=== PATIENT | female | born 1950 | race Caucasian/White ===

== ENCOUNTER 2018-03-26 15:28 | Emergency (ER) | payer MEDICARE ==
[2018-03-26] MEDS ORDERED: Doxycycline Hyclate 100 MG TAB ONE (15:41)
== END 2018-03-26 15:43 | disposition home or self-care (01) ==
LOC: BURERS 15:28
DX: S61.251A Open bite of left index finger without damage to nail, initial encounter (principal); I10 Essential (primary) hypertension; W55.01XA Bitten by cat, initial encounter
CPT/HCPCS: 99283